=== PATIENT | male | born 1985 | race African-American/Black ===

== ENCOUNTER 2021-06-20 12:03 | Emergency (ER) | payer BC ==
[~2021-06-20] VITALS: Ht 193 cm; Wt 112.9 kg
[~2021-06-20 12:03] MED LIST: LISINOPRIL-HCT1 EAC2 PO
[2021-06-20] MEDS ORDERED: PREDNISONE20 MG PO (13:30)
--- NOTE | 2021-06-20 20:38 | EKG ---
[facility] [address] [facility] [place], [place] [address] Signed Normal sinus rhythm Normal ECG No previous ECGs available Confirmed by CHARITY CHÁVEZ MD ([id number] on 06/20/2021 8:37:56 PM Electronically Signed By: CHARITY CHÁVEZ MD 06/20/[id number] PATIENT NAME: MARY LOU JACOB Electrocardiogram DATE OF : 89 PHYSICIAN: CHARITY CHÁVEZ MD REPORT #: [id number] REPORT IS CONFIDENTIAL AND NOT TO BE RELEASED WITHOUT AUTHORIZATION
== END 2021-06-20 13:42 | disposition home or self-care (01) ==
LOC: ED 12:03
DX: U07.1 COVID-19 (principal); J12.82 Pneumonia due to coronavirus disease 2019; E86.0 Dehydration; I10 Essential (primary) hypertension; F17.200 Nicotine dependence, unspecified, uncomplicated; Z88.5 Allergy status to narcotic agent; Z79.899 Other long term (current) drug therapy
CPT/HCPCS: 71045; 80053; 84484; 85007; 85025; 85379; 93005; 93010; 96374; 96375; 99285-25; C9803; J1100; J1885; U0003

== ENCOUNTER 2025-07-16 09:58 | Emergency (ER) | payer BC ==
[~2025-07-16] VITALS: Ht 193 cm; Wt 113.0 kg
[~2025-07-16 09:58] MED LIST changes: +PREDNISONE20 MG PO
[2025-07-16 12:36] LABS: CORONAVIRUS COVID-19 AG NEGATIVE (NEGATIVE)
[2025-07-16] MEDS ORDERED: ZITHROMAX250 MG PO (12:56)
[2025-07-16] MEDS ORDERED: AZITHROMYCIN 250 MG TAB PO ONE (13:00)
[2025-07-16 13:07] VITALS: BP 165/96
== END 2025-07-16 13:07 | disposition home or self-care (01) ==
LOC: ED 09:58
PROVIDERS: Emergency Medicine
DX: R04.2 Hemoptysis (principal); I10 Essential (primary) hypertension; Z88.5 Allergy status to narcotic agent; Z79.899 Other long term (current) drug therapy; Z11.52 Encounter for screening for COVID-19
CPT/HCPCS: 36415; 71045; 99283-25